=== PATIENT | female | born 1945 | race Two or more races ===

== ENCOUNTER 2018-11-07 12:22 | Inpatient (IN) | payer OTHER ==
[~2018-11-07] VITALS: Ht 157.5 cm; Wt 64.4 kg
[2018-11-29] MEDS ORDERED: CATAFLAN PO (16:03)
[2018-11-29] MEDS ORDERED: ADVIL100 MG PO (16:03)
[2018-12-06] MEDS ORDERED: DICLOFENAC POTA50 MG PO (07:50)
== END 2018-12-09 14:05 | DRG 470 ==
LOC: SURG 11-29 13:30 → O/R 12-06 05:00 → SURH 12-06 05:00 → SURG 12-06 07:00 → SURH 12-06 14:31
PROVIDERS: ADMIT Orthopaedic Surgery
PROC: 0SRD0J9 Replacement of Left Knee Joint with Synthetic Substitute, Cemented, Open Approach (ICD-10-PCS; principal; 2018-12-06 07:00)
DX: M17.12 Unilateral primary osteoarthritis, left knee (principal); D62 Acute posthemorrhagic anemia; Z96.652 Presence of left artificial knee joint